=== PATIENT | female | born 1960 | race Caucasian/White ===

== ENCOUNTER → 2018-11-26 | Outpatient (CLI) | payer BC ==
[2018-11-26 13:40] LABS: Anisocytosis Slight; HCT 38.7 % (34.0-46.0); HGB 12.5 gm/dL (11.4-16.0); MCH 27.7 pg (25.0-35.0); MCHC 32.3 g/dL (31.0-37.0); Mean Platelet Volume 7.8; Platelet Count 213 k/uL (150-450); WBC 4.1 k/uL (3.8-10.6)
[2018-11-26 18:18] LABS: African American GFR (CKD) 81.7 (60.0-200.0); Albumin 4.2 g/dL (3.80-4.90); Albumin/Globulin Ratio 2.1 (1.60-3.17); BUN/Creat Ratio 17.78 Ratio (12.00-20.00); Calcium 9.5 mg/dL (8.7-10.3); Potassium 4.3 mmol/L (3.5-5.5); Total Bilirubin 0.6 mg/dL (0.2-1.2); Total Protein 6.2 g/dL (6.2-8.2)
[2018-11-26 18:21] LABS: Iron Saturation 13.21 (12.00-45.00)
[2018-11-26 18:30] LABS: Vitamin D 25 Hydroxy 33.5 ng/mL (30.0-100.0)
[2018-11-26 18:35] LABS: Folate, Serum >24.0 ng/mL
== END | disposition home or self-care (01) ==
LOC: LABWHC1 13:11
PROVIDERS: ATTEND Surgery
DX: I10 Essential (primary) hypertension (principal); D50.9 Iron deficiency anemia, unspecified; E03.9 Hypothyroidism, unspecified; E78.5 Hyperlipidemia, unspecified; E55.9 Vitamin D deficiency, unspecified; D51.8 Other vitamin B12 deficiency anemias; Z90.3 Acquired absence of stomach [part of]; Z98.84 Bariatric surgery status
CPT/HCPCS: 36415; 80053; 80061; 82306; 82607; 82746; 83036; 83540; 83550; 84425; 84443; 85027

== ENCOUNTER → 2020-10-15 | Outpatient (CLI) | payer BC ==
--- NOTE | 2020-10-15 16:31 | MR ---
EXAMINATION TYPE: MR brain wo con DATE OF EXAM: 10/15/2020 COMPARISON: None HISTORY: Confusion, memory loss, left ear hearing issues, ringing in left ear, history of fall hittin g head. Ventricles have normal size. There is no mass effect nor midline shift. There is no sign of intracran ial hemorrhage. Diffusion images show no sign of an acute infarct. Sella turcica appears normal. There are scattered white matter high signal foci on the T2 and FLAIR i mages in both cerebral hemispheres. These are somewhat peripheral and measure up to 6 mm. Total numbe r is approximately 15. The brainstem is intact. Cerebellum is intact. The corpus callosum is intact. There is no evidence of posterior fossa mass. Internal auditory canals appear normal. There are bilat eral prominent Virchow-Yuan spaces. IMPRESSION: Scattered white matter peripheral high signal small foci probably due to mild chronic small vessel is chemia. No evidence of cortical infarct.
== END | disposition home or self-care (01) ==
LOC: RADMRIMAIN 15:25
PROVIDERS: ATTEND Psychiatry & Neurology Neurology
DX: G93.89 Other specified disorders of brain (principal); R41.3 Other amnesia; Z87.820 Personal history of traumatic brain injury
CPT/HCPCS: 70551